=== PATIENT | female | born 1960 | race Caucasian/White ===

== ENCOUNTER 2021-10-20 06:30 | Day surgery (SDC) | payer MEDICAID, OTHER ==
[2021-10-20] MEDS ORDERED: Sodium Chloride 0.9% 1,000 ML IV SCH (06:45)
[2021-10-20] MEDS ORDERED: Propofol 200 MG/20 ML SDV ONE (07:10)
[2021-10-20] MEDS ORDERED: Midazolam 1 MG/ML 2 ML SDV ONE (07:10)
[2021-10-20] MEDS ORDERED: fentaNYL 100 MCG/2 ML SDV ONE (07:10)
[2021-10-20 09:33] VITALS: BP 106/61; PULSE 71
== END 2021-10-20 09:35 | disposition home or self-care (01) ==
LOC: JP.SDS 06:30
PROVIDERS: ATTEND Surgery
DX: Z12.11 Encounter for screening for malignant neoplasm of colon (principal); F17.200 Nicotine dependence, unspecified, uncomplicated
CPT/HCPCS: 45378; J2250; J2704; J3010; J7030

== ENCOUNTER 2024-04-14 12:32 | Day surgery (SDC) | payer MEDICAID, OTHER ==
[2024-04-14] MEDS ORDERED: Sodium Chloride 0.9% 10 ML Syringe FLUSH PRN (13:15)
[2024-04-14] MEDS: Iopamidol 612 MG/ML 100 ML Bottle IV SCH (13:38)
[2024-04-14] MEDS: Sodium Chloride 0.9% 10 ML Syringe FLUSH ONE (13:38)
[2024-04-14] MEDS: Sodium Chloride 0.9% 80 ML IV SCH (13:38)
[2024-04-14 13:41] LABS: BASOPHILS ABSOLUTE AUTO 0.07 K/uL (0.00-0.10); BASOPHILS PERCENT AUTO 0.6 % (0.1-1.3); EOSINOPHILS ABSOLUTE AUTO 0.26 K/uL (0.00-0.40); EOSINOPHILS PERCENT AUTO 2.3 % (0.0-5.4); HEMATOCRIT 40.2 % (34.3-46.0); HEMOGLOBIN 13.5 g/dL (11.2-15.5); IMMATURE GRAN ABSOLUTE AUTO 0.03 K/uL (0.00-0.23); IMMATURE GRAN PERCENT AUTO 0.3 % (0.0-0.7); LYMPHOCYTES ABSOLUTE AUTO 1.48 K/uL (0.8-3.3); LYMPHOCYTES PERCENT AUTO 13.3 % (11.4-47.7); MEAN CORPUSCULAR HEMOGLOBIN 30.7 pg (31.6-35.5); MEAN CORPUSCULAR HGB CONC 33.6 g/dL (31.6-35.5); MEAN CORPUSCULAR VOLUME 91.4 fL (81.4-99.0); MONOCYTES PERCENT AUTO 4.5 % (3.3-12.6); NEUTROPHILS ABSOLUTE AUTO 8.79 K/uL (1.0-7.6); PLATELET COUNT,PLT 306 K/uL (130-375); WHITE BLOOD CELL COUNT,WBC 11.1 K/uL (3.2-11.0)
[2024-04-14 13:58] LABS: A/G RATIO 0.9 (1.2-2.2); ALANINE AMINOTRANSFERASE,ALT 43 U/L (12-78); ALBUMIN 3.8 g/dL (3.4-5.0); ALKALINE PHOSPHATASE 69 U/L (46-116); ASPARTATE AMNIOTRANSFERASE,AST 23 U/L (15-37); BILIRUBIN TOTAL 0.9 mg/dL (0.2-1.0); BLOOD UREA NITROGEN,BUN 10 mg/dL (7-18); C-REACTIVE PROTEIN 12.92 mg/dL (<0.50); CALCIUM 9.6 mg/dL (8.5-10.1); CARBON DIOXIDE,CO2 28 mmol/L (21-32); CHLORIDE,CL 100 mmol/L (100-108); CREATININE 1.1 mg/dL (0.6-1.0); EST CRCL DRUG DOSING (CG) 49.64 mL/min; ESTIMATED GFR 57 mL/min (>60); GLUCOSE RANDOM 119 mg/dL (74-106); POTASSIUM,K 3.7 mmol/L (3.6-5.2); SODIUM,NA 138 mmol/L (140-148)
[2024-04-14] MEDS: Ondansetron 4 MG/2 ML SDV IVPUSH ONE (13:58)
[2024-04-14 14:00] LABS: ANION GAP 13.7 mmol/L (5.0-14.0); LACTIC ACID 1.4 mmol/L (0.4-2.0)
[2024-04-14] MEDS: fentaNYL 50 MCG/ML SDV IVPUSH ONE (14:02)
[2024-04-14] MEDS: Piperacillin/Tazobactam 4.5 GM in Sodium Chloride 0.9% 100 ML IV ONE (15:08)
[2024-04-14] MEDS ORDERED: Rocuronium 50 MG/5 ML Vial ONE (15:44)
[2024-04-14] MEDS ORDERED: fentaNYL 250 MCG/5 ML SDV ONE (15:44)
[2024-04-14] MEDS ORDERED: Glycopyrrolate 0.2 MG/ML 5 ML MDV ONE (15:44)
[2024-04-14] MEDS ORDERED: Propofol 200 MG/20 ML SDV ONE (15:44)
[2024-04-14] MEDS ORDERED: Succinylcholine 200 MG/10 ML MDV ONE (15:44)
[2024-04-14] MEDS ORDERED: Ondansetron 4 MG/2 ML SDV ONE (15:44)
[2024-04-14] MEDS ORDERED: Neostigmine Methylsulfate 10 MG/10 ML MDV ONE (15:44)
[2024-04-14] MEDS ORDERED: Dexamethasone 4 MG/ML SDV ONE ×2 (15:44→16:18)
[2024-04-14] MEDS: Bupivacaine 0.25%/EPINEPHrine 1:200,000 30 ML SDV ONE (16:41)
[2024-04-14] MEDS ORDERED: Acetaminophen 650 MG Supp RECTAL PRN (17:21)
[2024-04-14 19:57] VITALS: BP 94/54; PULSE 78
[2024-04-14] MEDS: oxyCODONE 5 MG Tab PO PRN (19:57)
== END 2024-04-14 20:20 | disposition home or self-care (01) ==
LOC: JP.ED 12:32 → JP.SDS 15:36
PROVIDERS: ATTEND Surgery
DX: K35.80 Unspecified acute appendicitis (principal); F32.A Depression, unspecified; F41.9 Anxiety disorder, unspecified; Z87.891 Personal history of nicotine dependence; Z79.899 Other long term (current) drug therapy; Z88.8 Allergy status to other drugs, medicaments and biological substances
CPT/HCPCS: 00840-QZ; 36415; 74177; 74177-26; 80053; 83605; 84145; 85025; 86140; 88304; 96365; 96375; 99285; 99285-25; A9270-GY; J0330; J1100; J1596; J2405; J2543; J2704; J2710; J3010; J3490; Q9967